=== PATIENT | male | born 1980 | race Caucasian/White ===

== ENCOUNTER → 2017-04-23 | Outpatient (CLI) | payer BC ==
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
== END | disposition home or self-care (01) ==
LOC: SLEEP 11:32
PROVIDERS: ATTEND Internal Medicine
DX: G47.33 Obstructive sleep apnea (adult) (pediatric) (principal); G47.61 Periodic limb movement disorder; I10 Essential (primary) hypertension; F10.20 Alcohol dependence, uncomplicated; F17.200 Nicotine dependence, unspecified, uncomplicated; F40.240 Claustrophobia; E66.9 Obesity, unspecified; E78.5 Hyperlipidemia, unspecified; F31.9 Bipolar disorder, unspecified; Z87.828 Personal history of other (healed) physical injury and trauma; Z98.890 Other specified postprocedural states; Z79.899 Other long term (current) drug therapy; Z99.89 Dependence on other enabling machines and devices; Z68.43 Body mass index [BMI] 50.0-59.9, adult
CPT/HCPCS: 99211

== ENCOUNTER → 2017-09-10 | Outpatient (CLI) | payer BC ==
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
== END | disposition home or self-care (01) ==
LOC: SLEEP 15:29
PROVIDERS: ATTEND Internal Medicine
DX: G47.33 Obstructive sleep apnea (adult) (pediatric) (principal); I10 Essential (primary) hypertension; E66.9 Obesity, unspecified; F31.9 Bipolar disorder, unspecified; E78.5 Hyperlipidemia, unspecified; Z99.89 Dependence on other enabling machines and devices; Z79.899 Other long term (current) drug therapy; Z87.828 Personal history of other (healed) physical injury and trauma; Z87.81 Personal history of (healed) traumatic fracture